=== PATIENT | female | born 1985 | race American Indian/Alaskan Native ===

== ENCOUNTER 2019-03-26 21:22 | Inpatient (IN) | payer MEDICAID ==
[2019-03-27 00:25] LABS: Hematocrit 24.2 % (30.3-42.9); Hemoglobin 7.7 gm/dl (10.1-14.3); Mean Corpuscular HGB Conc 32 % (30-34); Mean Corpuscular Volume 76 fl (79-97); Platelet Count 383 K/mm3 (140-440); Red Blood Count 3.19 M/mm3 (3.65-5.03); Red Cell Distribution Width 17.2 % (13.2-15.2)
[2019-03-27 00:49] LABS: Bilirubin,Urine NEG (Negative); Blood,Urine NEG (Negative); Color,Urine Yellow (Yellow); Mucus,Urine 1+ /HPF; Protein,Urine <15 mg/dL mg/dL (Negative); RBC,Urine < 1.0 /HPF (0.0-6.0); Urobilinogen,Urine < 2.0 mg/dL (<2.0)
[2019-03-27 01:03] LABS: Alanine Aminotransferase 20 units/L (7-56); Uric Acid 3.2 mg/dL (3.5-7.6)
--- NOTE | 2019-03-27 07:10 | History and Physical Report ---
History of Present Illness Date of examination: 03/27/19 Date of admission: 03/27/2018 Chief complaint: leg swelling History of present illness: Pt presents c/o worsening edema in face, hands and lower ext that will improve with resting but not resolve. In triage she c/o pain and swelling in both legs making it difficult to ambulate. Pt admitted for evaluation and observation.Elevated bp times one noted so 24hr protein in process. Plan of care d/w pt and all questions were addressed and answered. Dopplers of lower ext also ordered and pending. EDC Confirmation: 06/22/2019 Gestational Age: 6 5/7 weeks Past History : 4 Term Births: 2 Premature Births: 0 Living Children: 2 Para: 2 Mult. Births: 0 Prev : 0 Prev. attempt? none Aborta: 0 Elect. Ab: 0 Spont. Ab: 1 Ectopics: 0 # 1 Delivery date: 12/15/2008 Weeks Gestation: term labor: no Delivery type: Anesthesia type: epidural Delivery location: [facility] Infant Sex: Male weight: 6# ? Comments: "bad tear" # 2 Delivery date: 01/07/2010 Weeks Gestation: term labor: no Delivery type: Anesthesia type: none Delivery location: [facility] Sex: Female weight: 6#? # 3 Delivery date: 12/23/2014 Weeks Gestation: 7 Delivery type: SAB Past Medical History: Reviewed history from 09/02/2012 and no changes required: "autoimmune disease" sarcoidosis Past Surgical History: Reviewed history from 11/24/2011 and no changes required: negative Past Medical History Abnormal PAP: negative ALE Exposure: negative Infertility: negative Uterine Anomaly: negative Uterine Surgery (not C/S): negative Other Gynecologic Problems: negative Social Hx: Recently remarried [facility] Infection History Hx of STD: none HIV Risk Eval: low risk Hepatitis B Risk Eval: low risk Personal hx. of genital herpes: no Partner hx. of genital herpes: no Rash, Viral, or Febrile illness since last LMP? no Varicella/Chicken Pox Status: Previous Disease TB Risk: no Genetic History ADVANCED MATERNAL AGE Congenital Heart Defect: Mom: no Dad: no Treva Disease: Mom: no Dad: no Thalassemia Mom: no Dad: no Neural Tube Defect Mom: no Dad: no Down's Syndrome Mom: no Dad: no Chuck-Sachs Mom: no Dad: no Sickle Cell Disease/Trait Mom: no Dad: no Hemophilia Mom: no Dad: no Muscular Dystrophy Mom: no Dad: no Cystic Fibrosis Mom: no Dad: no [place] Chorea Mom: no Dad: no Mental Retardation Mom: no Dad: no Fragile X Mom: no Dad: no Other Genetic/Chromosomal Disorder Mom: no Dad: no Child w/other defect Mom: no Dad: no Enviromental Exposures Enviromental Exposures Reviewed Xray Exposure: no Medication, drug, or alcohol use since LMP: no Chemical/Other Exposure: no Exposure to Cat Liter: no Hx of Parvovirus (Fifth Disease): no Occupational Exposure to Children: none Active Medications (reviewed today): TERAZOL 3 0.8 % VAGINAL CREAM (TERCONAZOLE) Insert into vagina qhs x 4 days CLEOCIN 300 MG ORAL CAPSULE (CLINDAMYCIN HCL) 1 tab PO BID x 7 days Current Allergies (reviewed today): * LATEX (Critical) * FLAGYL (Critical) * DIFLUCAN (Critical) Past History Past Medical History: other (sarcoidosis) Past Surgical History: other (see hpi) [employer] History: other (see hpi) - Obstetrical History Expected Date of Delivery: 06/22/19 Actual Gestation: 27 Week(s) 4 Day(s) : 4 Para: 2 Number of Living Children: 2 Medications and Allergies Allergies Allergy/AdvReac Type Severity Reaction Status Date / Time fluconazole [From Diflucan] Allergy Severe Unknown Verified 03/27/19 06:45 latex Allergy Hives Verified 03/27/19 06:45 Home Medications Medication Instructions Recorded Confirmed Last Taken Type Vit-Fe Fumar-FA [ 1 tab PO QDAY 03/27/19 03/27/19 1 Week Ago History Vitamin] ~03/20/19 Active Meds: Active Medications Multivitamins/Iron/Calcium ( Vitamin) 1 each PO QDAY TOMER - Vital Signs Vital signs: Vital Signs Temp 98.1 F 03/26/19 23:30 Temp Pulse Resp BP Pulse Ox 98.2 F 75 18 130/84 03/27/19 05:19 03/27/19 06:49 03/27/19 05:19 03/27/19 06:49 - Physical Exam Cardiovascular: Normal S1, Normal S2 Lungs: Positive: Normal air movement Abdomen: Positive: normal appearance, soft. Negative: distention, tenderness, guarding Genitourinary (Female): Positive: other (deferred) Extremities: Positive: normal, edema (1+). Negative: tenderness Deep Tendon Reflex Grade: Normal +2 - Obstetrical FHR: category 1 Results Result Diagrams: 03/26/19 23:36 03/26/19 23:36 Abnormal lab results 03/26/19 03/26/19 Range/Units 23:36 23:36 RBC 3.19 L (3.65-5.03) M/mm3 Hgb 7.7 L (10.1-14.3) gm/dl Hct 24.2 L (30.3-42.9) % MCV 76 L (79-97) fl MCH 24 L (28-32) pg RDW 17.2 H (13.2-15.2) % Creatinine 0.5 L (0.7-1.2) mg/dL Uric Acid 3.2 L (3.5-7.6) mg/dL Lactate Dehydrogenase 224 H (91-180) units/L All other labs normal. Assessment and Plan - Patient Problems (1) 27 weeks gestation of Current Visit: Yes Status: Acute (2) Elevated blood pressure affecting in second trimester, antepartum Current Visit: Yes Status: Acute Plan to address problem: -24 hr protein -closely monitor BPs (3) Mild generalized edema Current Visit: Yes Status: Acute Plan to address problem: -improved with resting not as sever as per pt -will obtain baseline echo to r/o cardiac disease as reason for recurring edema with activity. -no sob or chest pain
--- NOTE | 2019-03-27 08:55 | Progress Note ---
Assessment and Plan 33 y.o. IUP at 27w3d admitted for 24 hour urine collection and c/o severe swelling and leg pain. Patient resting in bed, reports "feeling much better, the swelling has gone down since I got here". No edema noted to face or hands/upper extremeties. 2+ pitting edema to LEs bilaterally. Patient denies any other complaints at this time- no THOMAS, visual disturbances, RUQ pain, vaginal bleeding, LOF, contractions, no chest pain or difficulty breathing. She reports that she occasionally has difficulty breathing when lying down. VSSAF. Reviewed POC with pt- Echo and LE doppler ordered. NST q shift as ordered- RN aware to perform. Will continue collection of 24 hour urine and monitor results of ordered tests as well as BPs. Pt instructed to notify RN of any changes in assessment, needs, or complaints. Subjective - Subjective Date of service: 03/27/19 Principal diagnosis: swelling, leg pain. 24 hr urine collection Patient reports: movement normal, no new complaints, no loss of fluid, no vaginal bleeding, no contractions Objective - Vital Signs Vital Signs: Vital Signs - 12hr 03/26/19 03/26/19 03/26/19 23:30 23:31 23:46 Temperature 98.1 F Pulse Rate 89 85 Respiratory Rate Blood Pressure 123/86 123/87 03/27/19 03/27/19 03/27/19 00:02 00:16 00:32 Temperature Pulse Rate 80 82 80 Respiratory Rate Blood Pressure 124/79 127/83 125/84 03/27/19 03/27/19 03/27/19 00:47 01:17 01:47 Temperature Pulse Rate 81 78 72 Respiratory Rate Blood Pressure 140/86 127/82 128/83 03/27/19 03/27/19 03/27/19 02:17 05:19 05:49 Temperature 98.2 F Pulse Rate 71 90 80 Respiratory 18 Rate Blood Pressure 138/81 141/87 123/74 03/27/19 03/27/19 03/27/19 06:19 06:49 07:20 Temperature Pulse Rate 79 75 90 Respiratory Rate Blood Pressure 125/81 130/84 121/81 03/27/19 03/27/19 03/27/19 07:49 08:19 08:51 Temperature Pulse Rate 84 85 87 Respiratory Rate Blood Pressure 122/85 137/84 119/80 - Exam Cardiovascular: Regular rate, Normal S1, Normal S2 Lungs: Clear to auscultation, Normal air movement Abdomen: Present: normal appearance, soft, normal bowel sounds. Absent: distention, tenderness Uterus: Present: normal Uterine Tone Measurement Phase: Resting (soft, no contractions palpated) - Labs Labs: Abnormal Labs 03/26/19 03/26/19 23:36 23:36 RBC 3.19 L Hgb 7.7 L Hct 24.2 L MCV 76 L MCH 24 L RDW 17.2 H Creatinine 0.5 L Uric Acid 3.2 L Lactate Dehydrogenase 224 H Laboratory Results - last 24 hr 03/26/19 03/26/19 03/26/19 23:34 23:36 23:36 WBC 6.5 RBC 3.19 L Hgb 7.7 L Hct 24.2 L MCV 76 L MCH 24 L MCHC 32 RDW 17.2 H Plt Count 383 Creatinine 0.5 L Estimated GFR > 60 Uric Acid 3.2 L AST 21 ALT 20 Lactate Dehydrogenase 224 H Urine Color Yellow Urine Turbidity Clear Urine pH 5.0 Ur Specific [place] 1.021 Urine Protein <15 mg/dl Urine Glucose (UA) Neg Urine Ketones Neg Urine Blood Neg Urine Nitrite Neg Urine Bilirubin Neg Urine Urobilinogen < 2.0 Ur Leukocyte Esterase Neg Urine WBC (Auto) 1.0 Urine RBC (Auto) < 1.0 U Epithel Cells (Auto) 1.0 Urine Mucus 1+ Blood Type Antibody Screen 03/27/19 02:40 WBC RBC Hgb Hct MCV MCH MCHC RDW Plt Count Creatinine Estimated GFR Uric Acid AST ALT Lactate Dehydrogenase Urine Color Urine Turbidity Urine pH Ur Specific [place] Urine Protein Urine Glucose (UA) Urine Ketones Urine Blood Urine Nitrite Urine Bilirubin Urine Urobilinogen Ur Leukocyte Esterase Urine WBC (Auto) Urine RBC (Auto) U Epithel Cells (Auto) Urine Mucus Blood Type O POSITIVE Antibody Screen TNR
[2019-03-27] MEDS ORDERED: PRENATAL VITAMIN PO SCH ×2 (10:00)
[2019-03-27] MEDS: FEOSOL PO SCH (11:56)
[2019-03-27] MEDS: COLACE PO SCH (11:58)
--- NOTE | 2019-03-27 12:20 | Vascular Lab Report ---
PROCEDURE: VL VENOUS DUPLEX LE BILAT TECHNIQUE: Duplex Doppler sonography of the BILATERAL lower extremities. Lozano scale imaging with and without compression, spectral waveform analysis with and without augmentation, and color flow Dopple r were employed. HISTORY: swelling in BLE/calf pain COMPARISONS: None FINDINGS: RIGHT lower EXTREMITY: Deep Venous Thrombus: None Superficial Venous Thrombus: None Venous valvular incompetence: None Soft tissue abnormality: None LEFT lower EXTREMITY: Deep Venous Thrombus: None Superficial Venous Thrombus: None Venous valvular incompetence: None Soft tissue abnormality: None IMPRESSION: No evidence of deep venous thrombosis. This document is electronically signed by Kay Garnett MD., March 27 2019 12:18:29 PM ET
--- NOTE | 2019-03-27 20:27 | Progress Note ---
Assessment and Plan - Patient Problems (1) 27 weeks gestation of Current Visit: Yes Status: Acute (2) Mild generalized edema Current Visit: Yes Status: Acute (3) Elevated blood pressure affecting in second trimester, antepartum Current Visit: Yes Status: Acute (4) Cough Current Visit: Yes Status: Acute Plan to address problem: Will proceed with CXR. Patient voiced understanding and agrees with plan of care (5) SOB (shortness of breath) Current Visit: Yes Status: Acute Subjective - Subjective Date of service: 03/27/19 Principal diagnosis: swelling, leg pain. 24 hr urine collection Interval history: Now complains of cough [id number] and SOB x1week, she has not been evaluated for these symptoms. However she feels much better Patient reports: movement normal, no new complaints, no loss of fluid, no vaginal bleeding, no contractions Objective - Vital Signs Vital Signs: Vital Signs - 12hr 03/27/19 03/27/19 03/27/19 08:51 09:19 09:49 Temperature Pulse Rate 87 78 85 Respiratory Rate Blood Pressure 119/80 116/72 112/70 Blood Pressure [Right] O2 Sat by Pulse Oximetry 03/27/19 03/27/19 03/27/19 10:20 11:49 12:03 Temperature Pulse Rate 88 89 77 Respiratory Rate Blood Pressure 116/63 143/95 133/91 Blood Pressure [Right] O2 Sat by Pulse Oximetry 03/27/19 03/27/19 03/27/19 12:19 12:25 12:26 Temperature Pulse Rate 82 80 81 Respiratory Rate Blood Pressure 128/91 129/91 131/90 Blood Pressure [Right] O2 Sat by Pulse Oximetry 03/27/19 03/27/19 03/27/19 12:49 13:19 13:49 Temperature Pulse Rate 80 84 75 Respiratory Rate Blood Pressure 129/87 131/86 144/79 Blood Pressure [Right] O2 Sat by Pulse Oximetry 03/27/19 03/27/19 03/27/19 14:19 14:49 15:49 Temperature Pulse Rate 86 90 90 Respiratory Rate Blood Pressure 135/93 141/79 130/80 Blood Pressure [Right] O2 Sat by Pulse Oximetry 03/27/19 03/27/19 03/27/19 16:19 16:49 17:19 Temperature Pulse Rate 91 H 93 H 86 Respiratory Rate Blood Pressure 133/98 133/77 119/65 Blood Pressure [Right] O2 Sat by Pulse Oximetry 03/27/19 03/27/19 03/27/19 17:49 18:19 19:11 Temperature 97.2 F L Pulse Rate 88 90 91 H Respiratory 16 Rate Blood Pressure 122/86 123/84 Blood Pressure 124/80 [Right] O2 Sat by Pulse Oximetry 03/27/19 03/27/19 03/27/19 19:19 20:02 20:05 Temperature Pulse Rate 91 H 84 83 Respiratory Rate Blood Pressure 124/80 122/83 Blood Pressure [Right] O2 Sat by Pulse 99 Oximetry 03/27/19 03/27/19 03/27/19 20:10 20:15 20:19 Temperature Pulse Rate 82 89 84 Respiratory Rate Blood Pressure 133/87 Blood Pressure [Right] O2 Sat by Pulse 99 98 Oximetry 03/27/19 20:20 Temperature Pulse Rate 82 Respiratory Rate Blood Pressure Blood Pressure [Right] O2 Sat by Pulse 100 Oximetry - Exam Breasts: deferred Lungs: Clear to auscultation, Normal air movement Extremities: edema (1+) Deep Tendon Reflex Grade: Normal +2 - Labs Labs: Abnormal Labs 03/26/19 03/26/19 23:36 23:36 RBC 3.19 L Hgb 7.7 L Hct 24.2 L MCV 76 L MCH 24 L RDW 17.2 H Creatinine 0.5 L Uric Acid 3.2 L Lactate Dehydrogenase 224 H Laboratory Results - last 24 hr 03/26/19 03/26/19 03/26/19 23:34 23:36 23:36 WBC 6.5 RBC 3.19 L Hgb 7.7 L Hct 24.2 L MCV 76 L MCH 24 L MCHC 32 RDW 17.2 H Plt Count 383 Creatinine 0.5 L Estimated GFR > 60 Uric Acid 3.2 L AST 21 ALT 20 Lactate Dehydrogenase 224 H Urine Color Yellow Urine Turbidity Clear Urine pH 5.0 Ur Specific [place] 1.021 Urine Protein <15 mg/dl Urine Glucose (UA) Neg Urine Ketones Neg Urine Blood Neg Urine Nitrite Neg Urine Bilirubin Neg Urine Urobilinogen < 2.0 Ur Leukocyte Esterase Neg Urine WBC (Auto) 1.0 Urine RBC (Auto) < 1.0 U Epithel Cells (Auto) 1.0 Urine Mucus 1+ Blood Type Antibody Screen SHANAE Antibody Screen 03/27/19 02:40 WBC RBC Hgb Hct MCV MCH MCHC RDW Plt Count Creatinine Estimated GFR Uric Acid AST ALT Lactate Dehydrogenase Urine Color Urine Turbidity Urine pH Ur Specific [place] Urine Protein Urine Glucose (UA) Urine Ketones Urine Blood Urine Nitrite Urine Bilirubin Urine Urobilinogen Ur Leukocyte Esterase Urine WBC (Auto) Urine RBC (Auto) U Epithel Cells (Auto) Urine Mucus Blood Type O POSITIVE Antibody Screen TNR SHANAE Antibody Screen Negative
--- NOTE | 2019-03-27 23:08 | XRay Report ---
PROCEDURE: XR CHEST 1V AP TECHNIQUE: Chest radiograph single view. HISTORY: evaluate for pneumonia COMPARISONS: None . FINDINGS: Heart: Normal. Mediastinum/Vessels: Normal. Lungs/Pleural space: Normal. Bony thorax: No acute osseous abnormality. Life support devices: None. IMPRESSION: No acute cardiopulmonary abnormality. This document is electronically signed by Lloyd Nye MD., March 27 2019 11:06:45 PM ET
[2019-03-28 06:07] VITALS: BP 130/75
[2019-03-28] MEDS: COLACE PO SCH (06:22)
[2019-03-28] MEDS: FEOSOL PO SCH (06:22)
--- NOTE | 2019-03-28 09:01 | Discharge Summary ---
Providers - Providers Date of Admission: 03/27/19 07:12 Date of discharge: 03/28/19 Attending physician: MAAME VUONG Primary care physician: MAAME VUONG Hospitalization Reason for admission: edema, leg pain, 24 hour urine Condition: Good Pertinent studies: Echo and CXR normal. Dopplers show no DVT. 24 hr urine pending. Will follow and call with results. Hospital course: uncomplicated Disposition: DC-01 TO HOME OR SELFCARE Core Measure Documentation - Palliative Care Palliative Care/ Comfort Measures: Not Applicable - Core Measures Any of the following diagnoses?: none Exam - Constitutional Vitals: Temp Pulse Resp BP Pulse Ox 97.2 F L 78 16 130/75 100 03/27/19 19:11 03/28/19 06:10 03/28/19 06:10 03/28/19 06:10 03/28/19 06:05 General appearance: Present: no acute distress, well-nourished - EENT Eyes: Present: PERRL ENT: hearing intact, clear oral mucosa - Neck Neck: Present: supple, normal ROM - Respiratory Respiratory effort: normal Respiratory: bilateral: CTA - Cardiovascular Rhythm: regular Heart Sounds: Present: S1 & S2. Absent: rub, click - Extremities Extremities: pulses symmetrical Extremity abnormal: edema (1+ pitting bilat LEs) Peripheral Pulses: within normal limits - Abdominal General gastrointestinal: Present: soft, non-tender, normal bowel sounds - Integumentary Integumentary: Present: clear, warm, dry - Musculoskeletal Musculoskeletal: gait normal, strength equal bilaterally - Psychiatric Psychiatric: appropriate mood/affect, intact judgment & insight - Neurologic Neurologic: CNII-XII intact, moves all extremities Plan Activity: no restrictions Diet: low salt Follow up with: MAAME VUONG MD [Primary Care Provider] - 7 Days (Follow up OB appointment scheduled with [facility] Ac[facility] on April [facility] at [facility]. Please call [phone] with any questions or concerns. )
[2019-03-28 10:37] LABS: Creatinine 24 Hour,Urine 1.7 (0.8-2.8); Creatinine,Urine 112.5 mg/dL (0.1-20.0)
== END 2019-03-28 09:30 | disposition home or self-care (01) | DRG 781 ==
LOC: TRG 21:22 → LD 03-27 04:35 → TRG 03-27 12:05
PROVIDERS: ADMIT Obstetrics & Gynecology; ATTEND Obstetrics & Gynecology
DX: O12.02 Gestational edema, second trimester (principal); R03.0 Elevated blood-pressure reading, without diagnosis of hypertension; O26.892 Other specified pregnancy related conditions, second trimester; Z3A.27 27 weeks gestation of pregnancy; Z91.040 Latex allergy status
CPT/HCPCS: 36415; 71045; 81001; 82565; 82570; 83615; 84156; 84450; 84460; 84550; 85027; 86850; 86900; 86901; 93306; 93970; G0378

== ENCOUNTER 2019-04-04 14:04 | Outpatient (CLI) | payer MEDICAID ==
[2019-04-04 15:10] LABS: Bilirubin,Urine NEG (Negative); Blood,Urine NEG (Negative); Color,Urine Yellow (Yellow); Mucus,Urine FEW /HPF; Protein,Urine <15 mg/dL mg/dL (Negative); Urobilinogen,Urine < 2.0 mg/dL (<2.0)
[2019-04-04 15:57] LABS: Hematocrit 27.1 % (30.3-42.9); Hemoglobin 8.8 gm/dl (10.1-14.3); Mean Corpuscular HGB Conc 33 % (30-34); Mean Corpuscular Volume 78 fl (79-97); Platelet Count 299 K/mm3 (140-440); Red Blood Count 3.48 M/mm3 (3.65-5.03); Red Cell Distribution Width 18.3 % (13.2-15.2)
[2019-04-04 16:34] LABS: Alanine Aminotransferase 16 units/L (7-56); Uric Acid 4.2 mg/dL (3.5-7.6)
[2019-04-04 17:08] VITALS: BP 147/85
== END 2019-04-04 17:31 | disposition home or self-care (01) ==
LOC: TRG 14:04
PROVIDERS: ATTEND Obstetrics & Gynecology
DX: O47.03 False labor before 37 completed weeks of gestation, third trimester (principal); O09.523 Supervision of elderly multigravida, third trimester; O99.513 Diseases of the respiratory system complicating pregnancy, third trimester; J45.909 Unspecified asthma, uncomplicated; O99.353 Diseases of the nervous system complicating pregnancy, third trimester; G43.909 Migraine, unspecified, not intractable, without status migrainosus; Z3A.28 28 weeks gestation of pregnancy
CPT/HCPCS: 36415; 59025; 81001; 82565; 83615; 84450; 84460; 84550; 85027; 96372